=== PATIENT | male | born 1950 | race Hispanic/Latino ===

== ENCOUNTER 2018-04-03 07:19 | Day surgery (SDC) | payer MEDICARE, OTHER ==
[2018-04-03] MEDS ORDERED: Iohexol 240 (50 ml) ONE (10:43)
[2018-04-03] MEDS ORDERED: Lidocaine 2% Jelly (Uro-Jet) ONE (10:44)
[2018-04-03] MEDS ORDERED: Propofol 10 mg/ml Inj (20 ML) ONE (10:54)
[2018-04-03] MEDS ORDERED: Midazolam 2 MG/2 ML VIAL ONE (10:54)
[2018-04-03] MEDS: cefTRIAXone 1 gm 1 GM/100 ML BAG IVPB ONE ×2 (11:00→11:01)
[2018-04-03] MEDS ORDERED: ePHEDrine 50 mg/ml Inj ONE ×2 (11:11→11:14)
[2018-04-03] MEDS ORDERED: HYDROmorphone 0.5 mg/0.5 ml ISec IVP PRN (12:21)
--- NOTE | 2018-04-03 12:23 | PCM.SURG1 ---
Surgeon's Initial Post Op Note - Surgeon's Notes Surgeon: Clarissa Valle Benzol Operator: none Type of Anesthesia: General LMA Pre-Operative Diagnosis: Microhematuria. BPH. Filling defect in bladder Operative Findings: Bladder tumors, R BN, trigone, floor, lateral wall. BPH Post-Operative Diagnosis: same Operation Performed: cysto, L rtg pyelogram, attempted R rtg pyelogram. TUR-BN , TUR-BT's. EUA Specimen/Specimens Removed: urine. BN. Bladder bx's Estimated Blood Loss: EBL {In ML}: 15 Blood Products Given: N/A Post-Op Condition: Good Date of Surgery/Procedure: 04/03/18 Time of Surgery/Procedure: 12:15
[2018-04-03] MEDS ORDERED: Lactated Ringer's 1,000 ML IV SCH (12:30)
[2018-04-03] MEDS ORDERED: Lactated Ringer's 1,000 ML IV ONE (14:30)
[2018-04-03] MEDS ORDERED: mitoMYcin 40 MG in Sodium Chloride 0.9% 40 ML IS ONE (16:15)
[2018-04-03 17:19] VITALS: RESP 16
--- NOTE | 2018-04-03 18:19 | RAD ---
Date of service: 04/03/2018 HISTORY: ENLARGED PROSTATE/BLADDER TUMOR COMPARISON: No prior. FINDINGS: BOWEL: Normal. No obstruction. No free air. BONES: Normal. OTHER FINDINGS: 1.0 cm calcification overlying the midpole the right kidney 8-9 mm calcification overlying the expected region of the left renal pelvis. IMPRESSION: Bilateral renal calculi as described above.
[2018-04-03 19:06] VITALS: BP 163/93; PULSE 75; TEMP 97.7; O2SAT 95
--- NOTE | 2018-04-04 17:49 | RAD ---
PROCEDURE: HISTORY: As Above COMPARISON: TECHNIQUE: Total fluoroscopic time utilized during the procedure: 11.1 seconds. Total dose 1.32 mGy cm squared FINDINGS: Submitted images from the current procedure: 7 Please refer to the physician's notes performing the procedure. IMPRESSION: Less than 1 hour fluoroscopic time utilized during performance of the procedure
--- NOTE | 2018-04-04 19:10 | OP ---
Copied To: Clare Valle MD Attending MD: Clare Valle MD PROCEDURE DATE: 04/03/2018 UROLOGY OPERATIVE REPORT PREOPERATIVE DIAGNOSIS: Microhematuria. POSTOPERATIVE DIAGNOSES: Microhematuria. Bladder tumors. Prostatic enlargement. PROCEDURES: Cystoscopy. Left retrograde pyelogram. Attempted right retrograde pyelogram. Transurethral resection of bladder tumors. Transurethral resection of bladder neck. OPERATING SURGEON: Clare Valle MD Procedure was performed under video endoscopic control as well as under fluoroscopic control. DESCRIPTION OF PROCEDURE: As follows: The patient received perioperative antibiotics. The patient was placed in the lithotomy position. The genitalia were prepped and draped sterilely. Anesthesia was applied by the anesthesiologist, via laryngeal mask airway. A 22-Icelandic cystoscope sheath was introduced under direct vision. Urethra, prostate, and bladder were inspected with 30-degree and 70-degree lenses. FINDINGS There was no stricture in the anterior urethra. There was evidence of trilobar prostatic hypertrophy. There were no mucosal lesions within the prostatic urethra. The prostatic urethra was occlusive. Prostatic urethra was approximately 3.5 to 4 cm in length. There was small intravesical intrusion of the middle lobe. The bladder was inspected. There was noted to be multiple papillary bladder tumors. The tumors involved the right floor of the bladder, the right trigone, the right bladder neck, and the right lateral wall of the bladder. The left ureteral orifice was identified and was normal. The left trigone was normal. The right ureteral orifice could not be identified. The anterior wall and left lateral wall of the bladder were normal. The bladder was reinspected with 70-degree lens to confirm the above findings. Occlusive tip retrograde ureteropyelogram was performed. Iodinated contrast dye was instilled via cone-tip catheter into left ureteral orifice. The left ureter and kidney were viewed sequentially. There was no evidence of filling defect or obstruction within the left ureter or collecting system. There was good drainage noted on the post drainage film. The attempt at the performance of the right retrograde pyelogram was made. However, the right ureteral orifice could not be identified due to the presence of the tumor. The cystoscope and sheath were removed. A 26-Icelandic continuous flow resectoscope sheath was introduced under direct vision using the visual obturator. The resectoscope was inserted. The resection of the tumors were performed individually. First, the resection of the tumor at the bladder neck was performed. The bladder neck tumor involved the posterior bladder neck. In addition, there was an anterolateral tumor. Complete resection was performed. Attention was then turned toward the tumor of the trigone. The tumor was resected. During the resection, the inspection of the site of the resection was performed to identify the ureteral orifice. However, the ureteral orifice could not be identified. The resection of tumor was performed. In addition, the base of the tumor was resected separately and sent for pathologic examination. The tumor on the floor of the bladder was resected as well as the posterior wall as well as the lateral wall. These tumors were sent individually. Hemostasis was achieved after each section of resection. The specimens were individually labeled and sent to the pathologist. The bladder was reinspected. Again, the ureteral orifice on the right was searched for, although could not be found. The left ureteral orifice was intact. The resectoscope and sheath were removed. The Willams catheter was inserted. Bladder drainage was clear. Exam under anesthesia/bimanual examination was performed. The prostate was enlarged. The prostate was approximately 40-50 gm in size without fixation, induration, or nodularity. Prostate was smooth and supple. There was no abnormal pelvic mass, fixation, or induration. The bladder was mobile. The patient tolerated procedure without complication. Clare Valle MD
== END 2018-04-03 19:00 | disposition home or self-care (01) ==
LOC: C.SDS 07:19
PROVIDERS: ATTEND Urology
DX: C67.8 Malignant neoplasm of overlapping sites of bladder (principal); N40.0 Benign prostatic hyperplasia without lower urinary tract symptoms; R31.21 Asymptomatic microscopic hematuria; N20.9 Urinary calculus, unspecified; I10 Essential (primary) hypertension; E11.9 Type 2 diabetes mellitus without complications; E78.5 Hyperlipidemia, unspecified; Z79.84 Long term (current) use of oral hypoglycemic drugs
CPT/HCPCS: 52234; 52500; 74018; 82948; 88305; A4322; A4358; C1758; J0696; J7120; J9280

== ENCOUNTER 2018-05-22 06:03 | Day surgery (SDC) | payer MEDICARE, OTHER ==
[2018-05-22] MEDS ORDERED: Lidocaine 2% Jelly (Uro-Jet) ONE (07:33)
[2018-05-22] MEDS ORDERED: Iohexol 240 (50 ml) ONE (07:33)
[2018-05-22] MEDS ORDERED: cefTRIAXone 1 gm 1 GM/100 ML BAG IVPB ONE (07:33)
[2018-05-22] MEDS ORDERED: Midazolam 2 MG/2 ML VIAL ONE ×2 (07:34→07:46)
[2018-05-22] MEDS ORDERED: Propofol 10 mg/ml Inj (20 ML) ONE ×2 (07:34→07:46)
[2018-05-22] MEDS ORDERED: HYDROmorphone 0.5 mg/0.5 ml ISec IVP PRN (09:43)
[2018-05-22] MEDS ORDERED: Lactated Ringer's 1,000 ML IV SCH (09:45)
--- NOTE | 2018-05-22 10:26 | PCM.SURG1 ---
Surgeon's Initial Post Op Note - Surgeon's Notes Surgeon: Clarissa Valle Personalized Living Assistant: none Type of Anesthesia: IV Sedation Pre-Operative Diagnosis: Bladder tumor Operative Findings: Abnormal bladder mucosa, R trigone, L trigone, R BN. R ureteral tumor, papillary. R hydronephrosis Post-Operative Diagnosis: same Operation Performed: cysto, bilat rtg pyelogram. bladder bx and fulg. R ureteroscopy, bx and fulg. insertion of R ureteral stent. TUR-BN. TUR-BT. EUA Specimen/Specimens Removed: urine. bladder bx's. R uretral bx Estimated Blood Loss: EBL {In ML}: 0 Blood Products Given: N/A Date of Surgery/Procedure: 05/22/18 Time of Surgery/Procedure: 10:00
[2018-05-22 10:46] VITALS: TEMP 97.8
[2018-05-22 11:12] VITALS: RESP 18
[2018-05-22 11:52] VITALS: BP 157/87; PULSE 85; O2SAT 98
--- NOTE | 2018-05-22 15:41 | RAD ---
Date of service: 2018-05-22 08:37:16 PROCEDURE: Intraoperative Fluoroscopy. HISTORY: BLADDER TUMOR FINDINGS: Fluoroscopic assistance was provided. Fluoroscopy time = 37.5 sec. Radiation dose = 1.75 mGy-cm. Please refer to the operative report from Dr. SANTANA, [place].
--- NOTE | 2018-05-22 18:01 | RAD ---
Date of service: 05/22/2018 HISTORY: BLADDER TUMOR COMPARISON: 04/03/2018. FINDINGS: BOWEL: Normal. No obstruction. No free air. BONES: Normal. OTHER FINDINGS: Two calculi identified right upper quadrant at least 1 of which likely resides within the gallbladder. The other appears to be within the right kidney measuring 9 mm. Obscuration of the left kidney by overlying bowel gas. No bladder abnormalities identified. IMPRESSION: Stable calculus right kidney. Cholelithiasis.
--- NOTE | 2018-05-23 19:25 | OP ---
PROCEDURE DATE: 05/22/2018 PREOPERATIVE DIAGNOSIS: History of high-grade bladder tumor. POSTOPERATIVE DIAGNOSES: History of high-grade bladder tumor. Abnormal bladder neck mucosa. Right hydronephrosis. Right distal ureteral tumor. Abnormal mucosa of left trigone. PROCEDURES: Cystoscopy. Bladder biopsy and fulguration. Left retrograde ureteropyelogram. Right retrograde ureteropyelogram. Insertion of right ureteral stent. Right ureteroscopy and ureteral biopsy and fulguration. Transurethral resection of bladder tumor. Transurethral resection of bladder neck. OPERATING SURGEON: Clare Valle MD DESCRIPTION OF PROCEDURE: As follows. The patient received perioperative antibiotics. The patient was placed in lithotomy position. The genitalia prepped and draped in a sterile fashion. Anesthesia was provided by the anesthesiologist via laryngeal mask airway. A 22-Burkinan cystoscope sheath was introduced under direct vision. Urethra, prostate, and bladder were inspected with 30 degrees and 70 degree lenses. FINDINGS: There was no stricture in the anterior urethra. There was evidence of lateral lobe prostatic hypertrophy. There was abnormal mucosa at the right bladder neck. This mucosa was reddened and granular. These changes may represent inflammatory versus neoplastic changes. There was abnormal mucosa over the right trigone. There was mucosa. There was granular and raised mucosa as well. These were at the sites of previous bladder tumor resection involving the right trigone and right floor of the bladder. The right lateral wall demonstrated no abnormality. The left trigone demonstrated some granular mucosa just medial to the left ureteral orifice. The mucosa was slightly raised and had some bulbous cystic appearance as well. The biopsy of the left trigone was performed with cold cup biopsy forceps. Fulguration was performed with Ball electrode and electrocautery. Biopsy of normal-appearing sites of mucosa within the bladder were obtained from the posterior wall, anterior wall as well as lateral wall. Fulguration was performed with Ball electrode and electrocautery. The further inspection of the right floor and trigone of bladder revealed a laterally displaced right ureteral orifice, which was dilated. There was abnormal papillary mucosa within the right ureteral orifice. A 0.035-inch guidewire was inserted into the right ureteral orifice and passed up to level of kidney. An open-ended catheter was inserted over the guidewire. The retrograde ureteropyelogram demonstrated moderate right hydroureteronephrosis. Candy Counter Clerk film of the abdomen revealed calcification overlying the right renal shadow. The guidewire was reinserted. A 6-Burkinan multilength stent was inserted over the guidewire. Ureteroscopy into the distal ureter was performed. The abnormal mucosa was biopsied. Multiple biopsies were obtained. Fulguration with Ball electrode was performed. Hemostasis was complete. The cystoscope and sheath removed. A 26-Burkinan continuous flow resectoscope sheath was introduced with the visual obturator. Resection of the abnormal mucosa of the bladder neck on the right was performed. Resection of the abnormal mucosa of the trigone and floor of the bladder were performed. Deep and full resection was performed. Hemostasis was achieved using electrocautery. The specimens were individually removed and individually sent for pathologic examination and were labeled according to the site. The bladder was reinspected and confirmed the above findings. The resectoscope and sheath were removed. Willams catheter was inserted. Bladder drainage was clear. Exam under anesthesia/bimanual examination was performed. There was no abnormal bladder mass fixation or induration. Prostate was supple and smooth, approximately 40 g in size without fixation, induration or nodularity. The patient tolerated procedure without complication. Clare Valle MD
== END 2018-05-22 12:37 | disposition home or self-care (01) ==
LOC: C.SDS 06:03
PROVIDERS: ATTEND Urology
DX: C67.9 Malignant neoplasm of bladder, unspecified (principal); N30.20 Other chronic cystitis without hematuria; N13.2 Hydronephrosis with renal and ureteral calculous obstruction
CPT/HCPCS: 52240; 74018; 82948; 87086; 88104; 88305; J0696; Q9966

== ENCOUNTER 2018-06-12 06:08 | Day surgery (SDC) | payer MEDICARE, OTHER ==
[2018-06-12 06:25] VITALS: BMI 27.6
[2018-06-12] MEDS ORDERED: Propofol 10 mg/ml Inj (20 ML) ONE (07:43)
[2018-06-12] MEDS ORDERED: Lidocaine Hydrochloride 5 ML INJ ONE (07:43)
[2018-06-12] MEDS ORDERED: Midazolam 2 MG/2 ML VIAL ONE (07:43)
[2018-06-12] MEDS ORDERED: cefTRIAXone 1 gm 1 GM/100 ML BAG IVPB ONE (07:50)
[2018-06-12] MEDS ORDERED: Iohexol 240 (50 ml) ONE (07:50)
[2018-06-12] MEDS ORDERED: Lidocaine 2% Jelly (Uro-Jet) ONE (07:51)
[2018-06-12] MEDS ORDERED: ePHEDrine 50 mg/ml Inj ONE (08:34)
[2018-06-12] MEDS ORDERED: Phenylephrine 10 mg/ml Inj ONE (09:16)
[2018-06-12] MEDS ORDERED: HYDROmorphone 0.5 mg/0.5 ml ISec IVP PRN (09:55)
--- NOTE | 2018-06-12 10:01 | PCM.SURG1 ---
Surgeon's Initial Post Op Note - Surgeon's Notes Surgeon: Clarissa Valle Lactation Coordinator: none Type of Anesthesia: General LMA Pre-Operative Diagnosis: R ureteral tumor. bladder tumor Operative Findings: same Post-Operative Diagnosis: same Operation Performed: cysto. R ureteroscopy. resection of distal R uretral tumor. TUR-BT. EUA Specimen/Specimens Removed: urine. ureteral tumor. bladder tumor Estimated Blood Loss: EBL {In ML}: 5 Blood Products Given: N/A Date of Surgery/Procedure: 06/12/18 Time of Surgery/Procedure: 09:50
[2018-06-12] MEDS ORDERED: Lactated Ringer's 500 ML IV ONE (11:00)
[2018-06-12 11:08] VITALS: O2SAT 96
[2018-06-12 11:42] VITALS: TEMP 97.8
[2018-06-12 12:32] VITALS: BP 153/85; PULSE 66; RESP 20
--- NOTE | 2018-06-12 18:49 | RAD ---
Date of service: 06/12/2018 PROCEDURE: Intraoperative Fluoroscopy. HISTORY: RT. URETERAL TUMOR/BLADDER TUMOR FINDINGS: Fluoroscopic assistance was provided for retrograde and stent placement. Please refer to the operative report from Dr. SANTANA, [place]. Total fluoroscopic time (continuous mode) utilized during the procedure 59.9 (seconds). Dose report: DLP [id number] (mGy/m2)
--- NOTE | 2018-06-12 18:51 | RAD ---
Date of service: 06/12/2018 HISTORY: RT. URETERAL TUMOR/BLADDER TUMOR COMPARISON: 05/22/2018 FINDINGS: BOWEL: Normal. No obstruction. No free air. BONES: Normal. OTHER FINDINGS: Confirmation of double-J stent catheter in good position on the right. Solitary calculus again identified. IMPRESSION: Confirmation double-J stent catheter on the right
--- NOTE | 2018-06-14 22:06 | OP ---
PROCEDURE DATE: 06/12/2018 UROLOGY OPERATIVE REPORT PREOPERATIVE DIAGNOSES: 1. History of bladder carcinoma. 2. Ureteral carcinoma. POSTOPERATIVE DIAGNOSES: 1. History of bladder carcinoma. 2. Ureteral carcinoma. PROCEDURES: 1. Cystoscopy and ureteral stent insertion. 2. Right ureteroscopy. 3. Resection and fulguration of right ureteral tumor. 4. Transurethral resection of bladder tumor. OPERATING SURGEON: Clare Valle MD The procedure was performed under video endoscopic control as well as under fluoroscopic control. DESCRIPTION OF OPERATION: Procedure as follows: The patient received perioperative antibiotics. The patient was placed in lithotomy position. Genitalia were prepped and draped sterilely. Anesthesia had been administered via laryngeal mask airway. A 22-Andorran cystoscope sheath was introduced under direct vision. Urethra, prostate, bladder were inspected. FINDINGS: There was no stricture of the anterior urethra. The prostatic urethra was occlusive secondary to lateral lobe hypertrophy. There was abnormal mucosa located on the right trigone. The right ureteral stent was identified. The mucosa on the right trigone was reddened and appeared to have predominantly inflammatory changes. The right ureteral stent was grasped with the rigid grasping forceps and brought to the distal end of the cystoscope sheath. A 0.035-inch guidewire was inserted into right ureteral stent and passed up to level of kidney. A second guidewire was inserted with the use of the double-lumen ureteral catheter. Ureteroscopy was performed with a 14-Andorran rigid ureteral resectoscope. Ureteral resectoscope was passed through the cystoscope sheath into the bladder. Thereafter was passed in atraumatic fashion into the ureter under endoscopic control as well as fluoroscopic control. The ureteroscopic findings included a small papillary tumor located within the distal centimeter of the right ureter. This area was resected with the ureteral resectoscope loop. Hemostasis was achieved with electrocautery. The specimen was sent for pathologic examination. The more proximal ureteroscopy up to the level of the sacrum was performed. There were no other mucosal lesions noted. The area of the tumor on the other sites within the bladder around the ureteral orifice were fully resected and deeply resected as well. They were individually sent for pathologic examination. Hemostasis was achieved using electrocautery. There were no other mucosal lesions noted within the bladder. The ureteral orifice was resected with the ureteral guidewire in place. Hemostasis was complete. There were no residual tumors. The resectoscope was removed. The 22-Andorran cystoscope sheath was back loaded over the working wire. Iodinated contrast dye was instilled via an open-ended catheter over the safety wire. The retrograde ureteropyelogram was delineating the renal anatomy. The 6-Andorran multi-length stent was then inserted in proper position as confirmed with fluoroscopy and endoscopy. The guidewire was removed and stent was left in place. The bladder was reinspected with 70-degree lens and confirmed the above findings. The cystoscope and sheath were removed. Willams catheter was inserted. Bladder drainage was clear. Exam under anesthesia/bimanual examination was performed. Prostate was supple and smooth, approximately 30-40 g in size. There was no abnormal pelvic mass fixation or induration. The patient tolerated the procedure without complication. Clare Valle MD
== END 2018-06-12 12:30 | disposition home or self-care (01) ==
LOC: C.SDS 06:08
PROVIDERS: ATTEND Urology
DX: C66.9 Malignant neoplasm of unspecified ureter (principal); C67.9 Malignant neoplasm of bladder, unspecified
CPT/HCPCS: 52214; 52234; 52332; 74018; 82948; 87086; 88104; 88305; 88312; A4322; A4358; C1758; C1769; C2617; J0696; J7120